=== PATIENT | female | born 1980 | race Caucasian/White ===

== ENCOUNTER → 2020-08-18 15:08 | Outpatient (CLI) | payer BC, SELFPAY ==
--- NOTE | ~2020-08-18 | MM_ITS ---
EXAMINATION: MM scrn madhu implant BI w itzel HISTORY: Screening mammogram TECHNIQUE: Craniocaudal and mediolateral oblique 3-D tomosynthesis images with implant displacement a nd synthetic 2-D images were generated. Craniocaudal and mediolateral oblique views of the breasts wi thout implant displacement were obtained using full field digital mammography. CAD analysis was submi tted and interpreted. COMPARISON: 07/17/2019 BREAST PARENCHYMAL COMPOSITION: There are scattered areas of fibroglandular density. FINDINGS: A stable mass in the upper outer quadrant of the right breast has the appearance of an intr amammary lymph node. There is no evidence of suspicious mass, calcification, or architectural distort ion to suggest malignancy in either breast. There has been no suspicious interval change. IMPRESSION: 1. No mammographic evidence of malignancy. 2. Recommend routine screening mammography in one year. BI-RADS Category 2: Benign finding(s). Reviewed, dictated and finalized at location A. NDWATER MONITORING TECHNICIAN
== END ==
PROVIDERS: PCP Physician Assistant Medical; Visit Provider Obstetrics & Gynecology
DX: Z12.31 Encounter for screening mammogram for malignant neoplasm of breast (principal)
CPT/HCPCS: 77063; 77067

== ENCOUNTER → 2021-10-24 15:33 | Outpatient (CLI) | payer BC, SELFPAY ==
--- NOTE | ~2021-10-24 | MM_ITS ---
EXAMINATION: MM scrn madhu implant BI w itzel HISTORY: Screening mammogram TECHNIQUE: Craniocaudal and mediolateral oblique 3-D tomosynthesis images with implant displacement a nd synthetic 2-D images were generated. Craniocaudal and mediolateral oblique views of the breasts wi thout implant displacement were obtained using full field digital mammography. CAD analysis was submi tted and interpreted. COMPARISON: August 18, 2020, July 17, 2019 bilateral implant screening mammogram examinations BREAST PARENCHYMAL COMPOSITION: The breasts are extremely dense, which lowers the sensitivity of mamm ography. FINDINGS: Status post bilateral augmentation mammoplasty. Stable right axillary tail circumscribed opacity consistent with benign intramammary lymph node. There is no evidence of suspicious mass, calcification, or architectural distortion to suggest malign jan in either breast. There has been no suspicious interval change. IMPRESSION: 1. No mammographic evidence of malignancy. 2. Recommend routine screening mammography in one year. BI-RADS Category 2: Benign finding(s). Reviewed, dictated and finalized at location A.
== END ==
PROVIDERS: PCP Obstetrics & Gynecology; Visit Provider Obstetrics & Gynecology
DX: Z12.31 Encounter for screening mammogram for malignant neoplasm of breast (principal)
CPT/HCPCS: 77063; 77067

== ENCOUNTER → 2021-11-03 01:55 | Outpatient (CLI) | payer BC, SELFPAY ==
[2021-11-03 16:02] LABS: SARS-CoV-2 RNA PCR Positive
== END ==
PROVIDERS: PCP Obstetrics & Gynecology; Visit Provider Nurse Practitioner Family
DX: U07.1 COVID-19 (principal)
CPT/HCPCS: C9803; U0003; U0005

== ENCOUNTER → 2023-01-29 10:51 | Outpatient (CLI) | payer BC, SELFPAY ==
--- NOTE | ~2023-01-29 | MM_ITS ---
EXAMINATION: MM scrn madhu implant BI w itzel HISTORY: Screening mammogram TECHNIQUE: Craniocaudal and mediolateral oblique 3-D tomosynthesis images with implant displacement a nd synthetic 2-D images were generated. Craniocaudal and mediolateral oblique views of the breasts wi thout implant displacement were obtained using full field digital mammography. CAD analysis was submi tted and interpreted. COMPARISON: 10/24/2021, 08/18/2020, 07/17/2019 BREAST PARENCHYMAL COMPOSITION: The breasts are heterogeneously dense, which may obscure small masses . FINDINGS: There is no evidence of suspicious mass, calcification, or architectural distortion to sugg est malignancy in either breast. There has been no suspicious interval change. IMPRESSION: 1. No mammographic evidence of malignancy. 2. Recommend routine screening mammography in one year. BI-RADS Category 1: Negative Reviewed, dictated and finalized at location A.
== END ==
PROVIDERS: PCP Obstetrics & Gynecology; Visit Provider Obstetrics & Gynecology
DX: Z12.31 Encounter for screening mammogram for malignant neoplasm of breast (principal); Z98.82 Breast implant status
CPT/HCPCS: 77063; 77067

== ENCOUNTER 2024-08-28 13:35 | Outpatient (CLI) | payer BC, SELFPAY ==
--- NOTE | ~2024-08-28 | MM_ITS ---
Screening EXAMINATION: MM scrn madhu implant BI w itzel HISTORY: Screening TECHNIQUE: Craniocaudal and mediolateral oblique 3-D tomosynthesis images were obtained and synthetic 2-D images were generated. CAD analysis was submitted and interpreted. Implant displaced views were also performed. COMPARISON: 01/29/2023 and dating back to 07/17/2019 BREAST PARENCHYMAL COMPOSITION: The breasts are heterogeneously dense, which may obscure small masses . FINDINGS: Punctate and bulky calcifications are detected bilaterally, stable and benign in appearance . Stable parenchymal pattern without suspicious microcalcifications, architectural distortion, discrete masses or significant asymmetry. IMPRESSION: 1. No mammographic/tomographic evidence of malignancy. 2. Recommend routine screening mammography in one year. BI-RADS Category 2: Benign finding(s). Reviewed, dictated and finalized at location A. LINING SUPERVISOR
== END 2024-08-28 13:36 | disposition home or self-care (01) ==
PROVIDERS: PCP Family Medicine; Visit Provider Obstetrics & Gynecology
DX: Z12.31 Encounter for screening mammogram for malignant neoplasm of breast (principal)
CPT/HCPCS: 77063; 77067

== ENCOUNTER 2025-01-05 00:57 | Day surgery (SDC) | payer BC, SELFPAY ==
[2024-12-23 09:04] VITALS: BMI 24.3
--- OUTSIDE RECORDS SUMMARY | 2025-01-05 01:00 | XMS_ITS | Data Portability ---
Author Organization [facility], [facility]) Address [address] [place] [address] Care Team Providers Care Ammunition Assembly Ii Laborer Name Role Phone JOSE ELIAS ACEVEDO Primary Care Provider Assessment Encounter Date Assessment Date Assessment LastModified by Organization Details LastModified Time 11/09/2024 11/09/2024 44 y/o with chronic venous insufficiency and CEAP grade 2 on the right and 2 on the left. VCSS score is 6. I am concerned that the symptoms may progress over time. She has previously completed vein closures with re-occurance of her symptoms Patients symptoms persist despite a trial of properly fitted gradient compression [id number]. Patient has also tried mild exercise, avoidance of prolonged immobility and periodic elevation of [id number].How ever, the symptoms still persist. Given the symptoms, I recommend lower extremity venous ultrasound. I will discuss further treatment plans upon reviewing her ultrasound results. I spent a total of 45 minutes with the patient. The time was spent reviewing the chart discussing with patient and/or family and forming a treatment plan Not available 11/09/2024 16:41:20 12/04/2024 12/04/2024 44 y/o with chronic venous insufficiency and CEAP grade 2 on the right and 2 on the left. VCSS score is 6. She has completed venous closure prior with re-occurrence of symptoms. She has worn compression therapy over the past year. Lower extremity venous reflux ultrasound demonstrated successful closure to the left GSV. The right GSV at the knee/calf and SSV are successfully treated as well. Venous reflux is present to the right GSV (prox and mid section) No DVT was seen bilaterally. I have discussed with her venous closure in an attempt to close the right GSV however her symptoms may not entirely be due to venous disease as she has symptoms to the left leg with no refluxing veins (GSV/SSV/Varicos ities). She would like to think about her decision moving forward with venous closure at this time. Not available 12/05/2024 23:35:22 Plan of Treatment Reminders Order Date Submit Date Provider Last Modified By Organization Details Last Modified Time Details Appointments None record ed. Lab None record ed. Referral None record ed. Procedures None record ed. Surgeries None record ed. Imaging None record ed. Medication Orders None record ed. Patient TargetsNo targets recorded. Patient InstructionsNo instructions recorded. Reason for Referral None Reported. Results Created Date Observation Date Name Description Value Unit Range Abnormal Flag Note LastModifiedBy Organization Detail LastModifiedTime 12/05/1912/04/2024 US, duple x, venou s, lower extre mity, compl ete No observ ation record ed. [email or web address] Not Available 2024 09:02:28 Result Notes None recorded. Problems Name Problem SNOMED Code Status Onset Date Resolution Date Notes Provider Name and Address Organization Details Recorded Time Varicose veins of lower extremity [id number] Active 025 Arabella ballesteros [facility] and 21:14:16 Problem Notes None recorded. Procedures Surgical History Date Name Laterality Status Provider Name and Address Organization Details Recorded Time 12/05/19 25 OALEVenousUSreflux completed Arabella leonard [facility] and 12/06/2024 21:13:44 Imaging Results None recorded. Procedure Notes None recorded. Medical Equipment None Reported. Allergies No known drug allergies Medications Not known to be on any medication Vitals Date Recorded Body height Body mass index (BMI) Body weight Heart rate Systolic And Diastolic Provider Name and Address Organization Details Last Updated DateTime 11/09/2024 175.26 cm 23.9 kg/m2 28725.96 g 69 /min 97/70 mm[Hg] susie figueroa [facility] 11/09/2024 15:45:28 Date Recorded Body height Body mass index (BMI) Body weight Heart rate Systolic And Diastolic Provider Name and Address Organization Details Last Updated DateTime 12/04/2024 175.26 cm 24.2 kg/m2 74788.15 g 58 /min 110/72 mm[Hg] [facility] 12/04/2024 11:40:32 Social History Question Answer Notes LastModified by Organizat ion Details LastModified Time Tobacco Smoking Status Never Smoker susie figueroa null, [facility] and 11/09/2024 15:45:55 What Was The Date Of Your Most Recent Tobacco Screening? 12/04/2024 [email or web address] Information not available 12/04/2024 Sex: Unknown Functional Status None recorded. Mental Status None recorded. Family History Nothing Reported. Medical History Condition Response Diabetes N Anxiety Disorder N Anticoagulation therapy N Varicose Veins N Coronary Artery Disease N Bleeding Disorder N Hyperlipidemia N Cancer N Stroke N Asthma N COPD N Pacemaker N Clotting Disorder N Anemia N Neurologic Disorder N Hepatitis N Genitourinary Disease N Heart Disease N Ulcers N Gastrointestinal Disease N Pulmonary Embolism N Deep Vein Thrombosis N Hypertension N Kidney Disease N Gynecological HistoryNo gynecological history recorded. Obstetrics History GPAL:G 0 P 0 0 0 0 Past Encounters Encounter ID Performer Location Encounter Start Date Encounter Closed Date Diagnosis/Indication Diagnosis SNOMED-CT Code Diagnosis ICD10 Code Diagnosis Note [id number] Bryon Brenner MD [facility] [address] [facility] [address] ( [place] [address] 11/09/2024 14:52:04 11/10/2024 10:12:45 Varicose veins of lower extremity 30046797 I83.893 [id number] Bryon Brenner MD [facility] 3 [facility] A [facility] [place] [address] 12/04/2024 11:01:56 12/08/2024 08:15:40 Varicose veins of lower extremity [id number] I83.893 [id number] Bryon Brenner MD [facility] 3 [facility] A [facility] [place] [address] 12/04/2024 11:56:17 12/08/2024 08:38:11 Varicose veins of lower extremity [id number] I83.893 Health Concerns Section Related Observation LastModified by Organization Detai ls LastModified Time None Recorded Concern Status LastModified by Organization Details LastModified Time None Recorded Advance Directives Directive None Recorded Payers Insurance Date Sequence Insurance Name Policy Number Policy Levin Covered Member ID Levin Member ID Guarantor Name 12/08/2024 1 [place] [id number] Miguel Johnson [id number] Katherin Johnson Notes Date Note Type Note Provider Name and Address Organization Details Recorded Time 5 text/html Varicose Vein or Venous insufficiencyReported bypatient.Location:[facility] Quality:aching;burning Associated Symptoms:swelling;itching; heaviness;throbbing;charac ter: cramping Context:compression stockings (for how long?) 1 year Alleviating Factors:elevation; compression; rest sleepsleep disturbances: insomnia: difficulty falling asleep: because of painNotes:She has previously completed venous closure with re-occurance of symptoms GUILHERME IVEY, INDUSTRIAL TRAINING SPECIALIST [address], [address], [facility] and 11/09/2024 16:42:05 5 text/html She is presenting for lower extremity venous ultrasound. No changes since previous HPI. GUILHERME IVEY, INDUSTRIAL TRAINING SPECIALIST [address] [facility], [place] [address], [place], [address], [facility] and 12/05/2024 23:35:27 OBGyn Episode No OBEpisode recorded.
--- OUTSIDE RECORDS SUMMARY | 2025-01-05 01:00 | XMS_ITS | Clinical Summary ---
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 Gender Identity Not on file Sexual Orientation Not on file Plan of Treatment Health Maintenance Due Date Last Done Comments Hepatitis C Virus (HCV) Screening 1979 TdaP Immunization 1979 Hepatitis B Immunization (1 of 3 - 19+ 3-dose series) 1998 Pap Smear 2000 Cervical Cancer Screening (CCS) 2009 HPV/Cotest 2009 Discussion re Starting/Frequ ency of Mammograms 2019 Influenza Immunization (#1) 2024 SARS-COV-2 Immunization ( season) 2024 Colonoscopy 2024 Colorectal Cancer Screening 2024 Respiratory Syncytial Virus (RSV) Immunization (Adult) (1 - 1-dose 75+ series) 2054 Meningococcal Immunization (ACWY) Aged Out No longer eligible based on patient's age to complete this topic Pneumococcal Immunization Combined Aged Out No longer eligible based on patient's age to complete this topic Rotavirus Immunization Aged Out No lo nger eligible based on patient's age to complete this topic
[2025-01-05 07:10] VITALS: BP 105/85; PULSE 78; RESP 16; TEMP 36.8; O2SAT 95; BMI 24.2
[2025-01-05 07:24] LABS: BEDSIDEPREGUCG Negative (Negative)
[2025-01-05] MEDS: LACTATED RINGERS 1,000 ML 150 ML IV CONT (07:32)
--- NOTE | 2025-01-05 07:43 | P.PNAN_ITS ---
Anes - Initial Pre Proc Eval Procedure: Operation Date: 01/05/25 08:30 Proposed Procedures p Screening Colonoscopy - Andrew Lyles MD Date/Time: 01/05/25 07:43 Surgeon: Andrew Lyles MD Pre Op Diagnosis: Encounter for screening for malignant neoplasm of Patient Data Age: 44 Gender: F Height: 1.75 m Weight: 74.5 kg Last Vital Signs Temp 98.3 F 01/05/25 07:10 Pulse 78 01/05/25 07:10 Resp 16 01/05/25 07:10 BP 105/85 01/05/25 07:10 Pulse Ox 95 01/05/25 07:10 O2 Del Method Room Air 01/05/25 07:10 Allergies Allergy/AdvReac Type Severity Reaction Status Date / Time No Known Allergies Allergy Mild Verified 01/05/25 07:17 Home Medications ?Medication ?Instructions ?Recorded ?Confirmed ?Type triamcinolone acetonide 0.1 % 1 applic topical BID #80 grams 11/05/23 01/05/25 Rx topical cream Laboratory Tests 01/05/25 07:22 POC Urine HCG, Qual Negative (Negative) Patient hx anesthesia problems: none Family hx anesthesia problems: none Results Review: All pre-operative results and documents have been reviewed as part of the pre-operative evaluation. [facility] Past Medical History Medical History Contact dermatitis BMI 25.0-25.9,adult Screening mammogram, encounter for Ovarian cyst hx Complex cyst left ovary 2009 BMI 24.0-24.9, adult Body mass index (BMI) 23 or greater Surgical History Surgical History H/O gynecological procedure 07/10/2007 - Colposcopy - MERLE I H/O gynecological procedure 03/13/16 Mirena IUD removal 12/15/15 Mirena IUD removal & reinsertion 12/12/10 Mirena IUD insertion H/O breast surgery breast implants Family History Family History Grandparent Cerebrovascular accident Diabetes mellitus Father No problems noted. Mother No problems noted. Sibling Thyroid activity decreased Other Congestive heart failure Heart disease Social History Social History Smoking status: Never smoker Second hand tobacco smoke exposure: No Alcohol intake: current Substance use: never Substance use type: does not use Do You Feel Safe in your Home?: Yes Lack of Transportation: No Lack of Food: Never True Current Housing: I Have Housing Concerned About Future Housing: No Difficulty Paying Gas/Electric Bills: No Difficulty Paying for Meds: No Currently Unemployed: No Education: Master's Degree or Higher Difficulty w/ Childcare or Family Care: No Living arrangements: with family Occupation/Education: occupation 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 (if verbalized by the patient): Female Sexual Orientation (if Verbalized by the Patient): Straight or Heterosexual Spiritual care concerns: No Anes - Eval Final PreProcedure Day of Procedure 01/05/25 07:43 Patient weight: normal Lungs: normal air movement Airway: Mallampati scale class 1 Neurological: alert and oriented Last oral intake: >/= 8 hours ASA classification: I Emergent: no Anesthetic plan: proceed Anesthesia type and monitoring: general GIVS and standard monitoring Results Review: All pre-operative results and documents have been reviewed as part of the pre- operative evaluation. Healthy, exercises regularly, no cp or sob. Informed Consent: The patient's anesthetic plan and its attendant risks and benefits were discussed with the patient/family/POA. Questions were solicited and answers provided to the satisfaction of the patient/family/POA.
--- NOTE | 2025-01-05 08:18 | PM.IMHP ---
H&P: HPI History of Present Illness Date/Time: 01/05/25 08:18 Chief Complaint: Screening colonoscopy Narrative: This is the patient's first colonoscopy. There are no GI symptoms and there is no family history of colorectal cancer. Review of Systems Review of Systems: All systems reviewed & are unremarkable except as noted in HPI and below PMFSH Past Medical History Medical History Contact dermatitis BMI 25.0-25.9,adult Screening mammogram, encounter for Ovarian cyst hx Complex cyst left ovary 2009 BMI 24.0-24.9, adult Body mass index (BMI) 23 or greater Surgical History Surgical History H/O gynecological procedure 07/10/2007 - Colposcopy - MERLE I H/O gynecological procedure 03/13/16 Mirena IUD removal 12/15/15 Mirena IUD removal & reinsertion 12/12/10 Mirena IUD insertion H/O breast surgery breast implants Family History Family History Grandparent Cerebrovascular accident Diabetes mellitus Father No problems noted. Mother No problems noted. Sibling Thyroid activity decreased Other Congestive heart failure Heart disease Social History Social History Smoking status: Never smoker Second hand tobacco smoke exposure: No Alcohol intake: current Substance use: never Substance use type: does not use Do You Feel Safe in your Home?: Yes Lack of Transportation: No Lack of Food: Never True Current Housing: I Have Housing Concerned About Future Housing: No Difficulty Paying Gas/Electric Bills: No Difficulty Paying for Meds: No Currently Unemployed: No Education: Master's Degree or Higher Difficulty w/ Childcare or Family Care: No Living arrangements: with family Occupation/Education: occupation 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 (if verbalized by the patient): Female Sexual Orientation (if Verbalized by the Patient): Straight or Heterosexual Spiritual care concerns: No Meds Home Medications and Allergies Home Medications ?Medication ?Instructions ?Recorded ?Confirmed ?Type triamcinolone acetonide 0.1 % 1 applic topical BID #80 grams 11/05/23 01/05/25 Rx topical cream Allergies Allergy/AdvReac Type Severity Reaction Status Date / Time No Known Allergies Allergy Mild Verified 01/05/25 07:17 Vital Signs Vital Signs - 24 hr 01/05/25 07:10 Temperature 98.3 F Pulse Rate 78 Respiratory Rate 16 Blood Pressure 105/85 Pulse Oximetry 95 Oxygen Delivery Room Air Exam Const: General: cooperative and healthy appearing Resp: Effort & Inspection: normal respiratory effort and able to speak in complete sentences Auscultation: clear to auscultation bilaterally Cardio: Rate: regular rate Rhythm: regular rhythm GI: Inspection: normal to inspection GI Palp: No No hepatosplenomegaly present Auscultation: normal bowel sounds Rectal Exam: deferred Skin: General skin exam: normal color Psych: Appearance: grossly normal Mental Status: mental status grossly normal Assessment and Plan Assessment and plan (1) Screening for colon cancer: Code(s): Z12.11 - Encounter for screening for malignant neoplasm of colon Status: Acute Assessment and Plan: The patient is deemed a good candidate for the procedure. Consent signed. Will proceed.
[2025-01-05 08:53] VITALS: BP 94/55; PULSE 63; RESP 24; O2SAT 98
[2025-01-05 09:03] VITALS: BP 100/75; PULSE 64; RESP 20; O2SAT 98
[2025-01-05 09:13] VITALS: BP 100/74; PULSE 52; RESP 19; O2SAT 99
== END 2025-01-05 09:20 | disposition home or self-care (01) ==
PROVIDERS: Anesthesiology; PCP Family Medicine; Referring Provider Physician Assistant Medical; Visit Provider Internal Medicine Gastroenterology
PROC: 0DJD8ZZ Inspection of Lower Intestinal Tract, Via Natural or Artificial Opening Endoscopic (ICD-10-PCS; CPT 45378; principal; 2025-01-05 08:30)
DX: Z12.11 Encounter for screening for malignant neoplasm of colon (principal); L25.9 Unspecified contact dermatitis, unspecified cause; Z98.890 Other specified postprocedural states; Z82.49 Family history of ischemic heart disease and other diseases of the circulatory system
CPT/HCPCS: 45378; J2003; J2704; J7120